=== PATIENT | male | born 1940 | race Caucasian/White ===

== ENCOUNTER 2024-03-24 23:43 | Emergency (ER) | payer MEDICARE, OTHER ==
[~2024-03-24] VITALS: Ht 162.6 cm; Wt 72.6 kg
[~2024-03-24 23:43] MED LIST: ALBU90OI INH; Cymbalta20 MG PO; HYDROCODONE-AC1 EAC7 PO; OMEP20ER PO; TAMS.4ER PO
[2024-03-24] MEDS ORDERED: METO25ER PO (23:59)
[2024-03-25] MEDS ORDERED: METO25 PO (00:05)
[2024-03-25] MEDS ORDERED: ALLO100 PO (00:06)
[2024-03-25] MEDS ORDERED: MAGNESIUM OXID500 MG PO (00:06)
[2024-03-25] MEDS ORDERED: Vitamin D1000 UNI1 PO (00:06)
[2024-03-25] MEDS ORDERED: GABA300 PO (00:06)
[2024-03-25] MEDS ORDERED: Lipitor20 MG PO (00:07)
[2024-03-25] MEDS ORDERED: Aspir 8181 MG PO (00:08)
[2024-03-25 00:10] LABS: Hematocrit 47.5 % (37.0-53.0); Hemoglobin 14.6 g/dL (13.5-17.5); Mean Corpuscular HGB 26.5 pg (26.0-34.0); Mean Corpuscular HGB Conc 30.7 g/dL (31.5-36.5); Mean Corpuscular Volume 86 fL (80-100); Mean Platelet Volume 9.6 fL (9.1-12.4); NRBC ABSOLUTE 0.02 K/mm3 (0.00-0.02); NRBC Auto 0.1 /100 WBC (0.0-0.2); Platelet Count 845 K/mm3 (150-400); White Blood Cell Count 17.42 K/mm3 (4.00-11.30)
[2024-03-25 00:43] LABS: Bun/Creatinine Ratio 13.5 (12.0-20.0); Calcium, Blood 9.1 mg/dL (8.5-10.1); Creatinine, Blood 1.11 mg/dL (0.60-1.20); Magnesium, Blood 1.2 mg/dL (1.6-2.4); Potassium, Blood 4.3 mmol/L (3.5-5.5); Thyroid Stimulating Hormone 3.25 uIU/mL (0.360-4.800)
[2024-03-25 00:45] LABS: BAND PERCENT MAN 1 % (0-8); BASOPHILS ABSOLUTE MAN 0.52 K/mm3 (0.00-0.23); BASOPHILS PERCENT MAN 3 % (0-2); EOSINOPHILS ABSOLUTE MAN 0.17 K/mm3 (0.00-0.68); EOSINOPHILS PERCENT MAN 1 % (0-6); LYMPHOCYTES ABSOLUTE MAN 1.21 K/mm3 (0.84-5.20); LYMPHOCYTES PERCENT MAN 7 % (21-46); METAMYELOCYTE ABSOLUTE MAN 0.17 K/mm3 (0.00-0.00); METAMYELOCYTE PERCENT MAN 1 % (0-0); MONOCYTES ABSOLUTE MAN 0.52 K/mm3 (0.16-1.47); MONOCYTES PERCENT MAN 3 % (4-13); SEG NEUTROPHILS PERCENT MAN 84 % (41-73); TOTAL CELLS COUNTED 100
[2024-03-25] MEDS ORDERED: Magnesium Sulf 2 GM/Water 50ML 50 ML IV ONE (01:00)
== END 2024-03-25 05:25 | disposition home or self-care (01) ==
LOC: ER 23:43
PROVIDERS: Student in an Organized Health Care Education/Training Program
DX: R00.0 Tachycardia, unspecified (principal); R00.2 Palpitations; R07.89 Other chest pain; Z79.899 Other long term (current) drug therapy; Z79.82 Long term (current) use of aspirin
CPT/HCPCS: 71045; 80048; 83735; 83880; 84443; 84484; 85025; 93005; 93010; 96365; 96366; 99285-25; J3475